=== PATIENT | female | born 1970 | race Caucasian/White ===

== ENCOUNTER 2018-09-03 08:51 | Day surgery (SDC) | payer BC ==
[~2018-09-03] VITALS: Ht 157.5 cm; Wt 72.6 kg
[~2018-09-03 08:51] MED LIST: CEFAZOLIN SOD 1 GM in D5W 50 ML IV ONE
[2018-09-03] MEDS ORDERED: ONDANSETRON HCL 4 MG/2 ML VIAL IVP PRN ×2 (10:15→12:30)
[2018-09-03] MEDS ORDERED: fentaNYL CITRATE/PF 100 MCG/2 ML AMP IVP PRN ×2 (10:15)
[2018-09-03] MEDS ORDERED: KETOROLAC TROMETHAMINE 30 MG VIAL IVP PRN (10:15)
[2018-09-03] MEDS ORDERED: HYDROcodone/ACETAMIN 5-325 MG TAB (NORCO/ VICODIN) PO PRN (12:30)
[2018-09-03] MEDS ORDERED: OXYCODONE/ACETAMINOPHEN 5-325 TABLET PO PRN (12:30)
[2018-09-03] MEDS ORDERED: PROPOFOL 200MG/ 20ML VIAL (DIPRIVAN) IV ONE (12:45)
[2018-09-03] MEDS ORDERED: NEOSTIGMINE METHYLSULFATE 1 MG/ML, 10 ML VIAL ONE (12:45)
[2018-09-03] MEDS ORDERED: LR 1,000 ML IV.SOLN IV ONE (12:45)
[2018-09-03] MEDS ORDERED: BUPIVACAINE /PF 0.25% 30 ML VIAL INJ ONE (12:45)
[2018-09-03] MEDS ORDERED: SEVOFLURANE 15 MIN GAS INH ONE (12:45)
[2018-09-03] MEDS ORDERED: PHENYLEPHRINE HCL 10 MG/ML VIAL (NEOSYNEPHRINE) ONE (12:45)
[2018-09-03] MEDS ORDERED: DEXAMETHASONE SOD PHOSPHATE 4 MG/ML VIAL ONE (12:45)
[2018-09-03] MEDS ORDERED: MIDAZOLAM HCL 5 MG/ML VIAL (VERSED) IV ONE (12:45)
[2018-09-03] MEDS ORDERED: NS IRRIG SOLN 1000 ML IR ONE (12:45)
[2018-09-03] MEDS ORDERED: ROCURONIUM BROMIDE 10 MG/ML (ZEMURON) ONE (12:45)
[2018-09-03] MEDS ORDERED: GLYCOPYRROLATE 0.2 MG/ML VIAL ONE (12:45)
[2018-09-03] MEDS ORDERED: ROPIVACAINE 0.2% (NAROPIN) PF SOLUTION 100 ML BOTTLE ONE (12:45)
[2018-09-03] MEDS ORDERED: ONDANSETRON HCL 4 MG/2 ML VIAL ONE (12:45)
[2018-09-03] MEDS ORDERED: BUPIVACAINE /PF 0.5% 30 ML VIAL ONE (12:45)
[2018-09-03] MEDS ORDERED: KETOROLAC TROMETHAMINE 30 MG VIAL ONE (12:45)
[2018-09-03] MEDS ORDERED: NS 1000 ML IV.SOLN IV ONE (12:45)
[2018-09-03] MEDS ORDERED: fentaNYL CITRATE/PF 100 MCG/2 ML AMP ONE (12:45)
[2018-09-03] MEDS ORDERED: LIDOCAINE 2%, 20 ML MDV ONE (12:45)
[2018-09-03] MEDS ORDERED: SIMETHICONE 80 MG TAB.CHEW PO SCH (13:00)
[2018-09-03] MEDS: OXYCODONE/ACETAMINOPHEN 5-325 TABLET PO PRN (15:00)
[2018-09-03] MEDS ORDERED: OXYCODONE/ACETAMINOPHEN 5-325 TABLET ONE (15:02)
[2018-09-03 20:19] VITALS: BP_SYST 121
[2018-09-03 23:55] VITALS: BP_SYST 111
[2018-09-04 08:00] VITALS: BP_SYST 109
[2018-09-04] MEDS: OXYCODONE/ACETAMINOPHEN 5-325 TABLET PO PRN (10:31)
[2018-09-04 11:55] VITALS: BP_SYST 105
[2018-09-04 12:02] VITALS: BP_SYST 105
== END 2018-09-04 15:20 | disposition home or self-care (01) ==
LOC: SDS 08:51 → SMU 08:52 → SDS 09-04 15:20
PROVIDERS: ATTEND Specialist
DX: N93.8 Other specified abnormal uterine and vaginal bleeding (principal); N83.209 Unspecified ovarian cyst, unspecified side; M79.5 Residual foreign body in soft tissue; D25.9 Leiomyoma of uterus, unspecified; N80.0 Endometriosis of uterus; N83.8 Other noninflammatory disorders of ovary, fallopian tube and broad ligament; Z98.890 Other specified postprocedural states; Z79.899 Other long term (current) drug therapy; Z88.8 Allergy status to other drugs, medicaments and biological substances; Z91.040 Latex allergy status
CPT/HCPCS: 57425; 58552; 88307; C1727; J0690; J1100; J1885; J2001; J2250; J2370; J2405; J2704; J2710; J2795; J3010; J3490 ×3; J7030; J7060; J7120